=== PATIENT | male | born 1965 | race Caucasian/White ===

== ENCOUNTER 2021-02-19 10:49 | Emergency (ER) | payer OTHER ==
[2021-02-19 11:47] LABS: HEMOGLOBIN 14.8 gm/dl (14.0-17.5); RED BLOOD COUNT 4.74 M/UL (4.20-5.50); WHITE BLOOD COUNT 12.9 K/UL (4.5-11.0)
[2021-02-19 11:58] LABS: BUN/CREATININE RATIO 18 (0-10)
[2021-02-19] MEDS ORDERED: ASPIRIN CHEWABL81 MG PO ×2 (13:33→13:38)
[2021-02-19] MEDS ORDERED: ATIVAN0.5 MG PO ×2 (13:33→13:38)
== END 2021-02-19 14:29 | disposition home or self-care (01) ==
LOC: ER1 10:49
PROVIDERS: Family Medicine
DX: G45.9 Transient cerebral ischemic attack, unspecified (principal); F43.9 Reaction to severe stress, unspecified; R29.703 NIHSS score 3; F17.210 Nicotine dependence, cigarettes, uncomplicated; W01.0XXA Fall on same level from slipping, tripping and stumbling without subsequent striking against object, initial encounter
CPT/HCPCS: 70496; 70498; 71045; 80053; 82550; 82553; 83874; 84484; 85025; 85610; 93005; 99284; Q9967